=== PATIENT | male | born 1995 | race Caucasian/White ===

== ENCOUNTER 2025-07-27 04:31 | Outpatient (CLI) | payer BC, SELFPAY ==
--- OUTSIDE RECORDS SUMMARY | 2025-05-10 09:45 | XMS_ITS ---
Author Organization [facility] Address [address] [facility] [address] [facility] [address] [place] [id number] Care Team Providers Care Orientation & Mobility Specialist Name Role Phone Ramesh Hernandeza Unavailable [phone] Allergies No Known Allergies REASON FOR VISIT New establishment Encounters Encounter Location Date Provider Diagnosis [facility] [address] [facility] [address] [place] [id number] 05/10/2025 Cassy Hernandez Plan Of Treatment No Information Progress Notes * Singh SWARTZDOB: [birth year] (30 yo M)Acc No.[id number]:05/10/2025 Progress Notes Patient: Singh CROW Provider: JAZMÍN Haider :1995 A ge:30 Y S ex:Male Date:05/10/2025 Address:[facility] [id number] Subjective: * Chief Complaints: * 1 . New establishment. * HPI: H PI: Patient is here today for t o get establish with us. Pt was seen by. * ROS: A LLERGY: Negative for r unny nose, scratchy throat, itchy eyes. D ERMATOLOGY: Negative for r jerrod, hives. G ASTROENTEROLOGY: Negative for n ausea, vomiting, diarrhea. U ROLOGY: Negative for d ifficulty urinating, frequent urination, recurrent UTI. * Medical History: M edical History Verified. 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 * Allergies: N .K.D.A. Objective: * Vitals: Assessment: Plan: * Treatment: * Images: Billing Information: * Visit Code: * Procedure Codes: * Electronic signature of JAZMÍN Damon on 07/27/2025 at 04:37 AM EDT Sign off status: Pending * Provider: JAZMÍN Haider Date: 0 05/10/2025 Generated for Marian jason/Robert/Mica on: 1 04:37 AM EDT History and Physical Notes * HPI (History of Present Illness) Category Sub-Category Detail Notes Category Not es HPI Patient is here today for to get establish with us. Pt was seen by
--- NOTE | 2025-07-27 | XR_ITS ---
PROCEDURE INFORMATION: Exam: XR Left Knee Exam date and time: 07/27/2025 4:32 AM Age: 30 years old Clinical indication: Pain; Knee; Left TECHNIQUE: Imaging protocol: Radiologic exam of the left knee. Views: 3 views. COMPARISON: No relevant prior studies available. FINDINGS: Bones/joints: Normal. Soft tissues: Normal. IMPRESSION: No acute findings.
--- OUTSIDE RECORDS SUMMARY | 2025-07-27 04:37 | XMS_ITS | Encounter Summary ---
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 Role Phone Unavailable Primary Care Provider Unavailabl e Encounter Details Date Type Department Care Team (Late st Contact Info) Description 06/28/2019 Transcribed Document [facility] Family Medicine [address] [place] [address] ProviderHumberto MD [address] [place] [address] Social History Tobacco Use Types Packs/Day Years Used Date Smoking Tobacco: Never Assessed Sex and Gender Information Value Date Recorded Sex Assigned at Male 03/25/2022 8:36 PM CDT Legal Sex Male 8:36 PM CDT Gender Identity Male 03/25/2022 8:36 PM CDT Sexual Orientation Not on file documented as of this encounter Miscellaneous Notes * Cerner Conversion Note - Humberto ProviderMD - 06/28/2019 1:44 AM CDT [facility] [place], [place] [id number] ERIKAJENNA MURILLO Quin :1995 Visit Time:06/27/2019 Your Visit Summary Your Care Team Primary Provider: JOAN KAPADIA Secondary Provider: Your Diagnosis Abdominal pain Diarrhea Viral syndrome Medical Information You may obtain a copy of your Emergency Department visit from Medical Records by calling the hospital phone number listed above and asking to be directed to the Medical Records Department. If you had special tests, such as EKG???s or X-rays, the interpretation of your tests given to you by the Emergency Department Physician is a preliminary report. Some fractures and illnesses fail to show up on preliminary tests. These will be reviewed again and we will call you if there are any new suggestions. If your symptoms continue notify your physician. After you leave, you should follow the instructions provided. What to do next Follow-Up Appointments Follow Up with Return to Emergency Department When Within As needed Follow Up with Follow up with primary care provider When Within 2 to 3 days Follow Up with NO [facility] DR HENDERSON When Within 2 to 3 days Allergies No Known Allergies Immunizations This Visit No Immunizations Found Medications What How Much When Instructions Next Dose New dicyclomine (Bentyl 20 mg oral tablet) 1 Tablet(s) Oral Four Times A Day Duration: 7 Day(s) Printed Prescription New loperamide (Imodium A-D 2 mg oral tablet) 1 Tablet(s) Oral Every 4 Hours as needed for for loose stool Duration: 5 Day(s) Printed Prescription The home medications listed are only as accurate as the information you provided. Please continue taking all of your medications prescribed by your Primary Care Provider unless specifically told to change or discontinue the medication. Please direct any questions regarding your home medications to your Primary Care Provider. Take your medications faithfully. Do NOT skip medication. Do NOT stop taking medications without the direction of a physician. Carry a list of your medications with you at all times, and take this medication list with you to your first follow up visit. Report any side effects. Avoid herbal remedies unless discussed with your physician. As part of your treatment plan, your physician may have prescribed a limited course of a controlled substance. This medication may be given to help people with moderate or severe pain or for other medical conditions, but there are risks involved with treatment. Common side effects may include nausea, constipation, drowsiness, sweating, itching, dry mouth, and rash. More serious side effects may include cognitive and motor impairment, like problems with thinking, concentrating, alertness, and movement (e.g. slowed reflexes), and driving and operating heavy machinery can be dangerous. It is important for you to talk to your physician if you have these side effects or questions. These controlled substances can produce physical dependence and be habit-forming if taken for an extended period of time, which means that the body has gotten used to them and may experience withdrawal symptoms if they are abruptly stopped. Withdrawal symptoms can include runny nose, sweating, goose bumps, diarrhea, abdominal cramping, rapid heartbeat, difficulty sleeping, and nervousness. Please dispose of unused and medications per pharmacy guidance. Test Results Laboratory or Other Results This Visit (last charted value for your 06/27/2019 visit) Hematology 06/27/2019 9:23 PM WBC: 11.0 K/uL -- Normal range between ( 3.6 and 9.5 ) RBC: 5.31 Million/uL -- Normal range between ( 4.20 and 5.70 ) Hct: 48.0 % -- Normal range between ( 40.1 and 51.0 ) Hgb: 17.2 g/dL -- Normal range between ( 13.5 and 17.3 ) Platelet Count: 228 K/uL -- Normal range between ( 163 and 369 ) MCH: 32.4 pg -- Normal range between ( 25.6 and 32.2 ) MCHC: 35.8 Gram/dL -- Normal range between ( 32.2 and 36.5 ) MCV: 90.4 fL -- Normal range between ( 79.0 and 94.8 ) Slide Review: No Eos %: 2.8 % -- Normal range between ( 0.0 and 7.0 ) Cherry #: 1.22 K/uL -- Normal range between ( 0.16 and 1.00 ) Eos #: 0.31 x10(3)/uL -- Normal range between ( 0.00 and 0.80 ) Cherry %: 11.1 % -- Normal range between ( 3.0 and 9.0 ) Baso %: 0.6 % -- Normal range between ( 0.0 and 1.5 ) Baso #: 0.07 x10(3)/uL -- Normal range between ( 0.00 and 0.20 ) RDW: 12.1 % -- Normal range between ( 11.7 and 14.9 ) Neut %: 65.7 % -- Normal range between ( 34.0 and 71.0 ) Neut #: 7.19 K/uL -- Normal range between ( 1.56 and 6.13 ) Lymph %: 19.2 % -- Normal range between ( 19.3 and 53.1 ) Lymph #: 2.11 x10(3)/uL -- Normal range between ( 1.00 and 3.90 ) MPV: 10.2 fL -- Normal range between ( 9.4 and 12.4 ) IG#: 0.07 x10(3)/uL -- Normal range between ( 0.00 and 0.05 ) IG%: 0.60 % -- Normal range between ( 0.00 and 0.60 ) Urinalysis 06/27/2019 4:45 PM Urine Nitrite: Negative Urine Leukocyte Esterase: Negative Urine Appearance: Clear Urine Glucose Dipstick: Negative Urine Blood Dipstick: Negative Urine Type: U CleanCatch Urine Urobilinogen Dipstick: 0.2 EU/dL Urine Protein Dipstick: Negative Urine Color: Yellow Urine Ketones Dipstick: 40 Urine pH Dipstick: 6.0 -- Normal range between ( 6.0 and 8.0 ) Urine Bilirubin Dipstick: Small Urine Specific Lyman: 1.022 -- Normal range between ( 1.005 and 1.030 ) General Chemistry 06/27/2019 9:23 PM Creatinine Level: 1.10 mg/dL -- Normal range between ( 0.70 and 1.30 ) Sodium Level: 137 mmol/L -- Normal range between ( 136 and 146 ) Potassium Level: 3.9 mmol/L -- Normal range between ( 3.5 and 5.1 ) Chloride Level: 103 mmol/L -- Normal range between ( 102 and 112 ) Carbon Dioxide Level: 25 mmol/L -- Normal range between ( 21 and 32 ) Anion Gap: 13 -- Normal range between ( 9 and 20 ) Bilirubin Total: 1.0 mg/dL -- Normal range between ( 0.2 and 1.2 ) A/G Ratio: 0.9 -- Normal range between ( 1.1 and 2.5 ) ALT: 24 Units/Liter -- Normal range between ( 16 and 61 ) AST: 19 Units/Liter -- Normal range between ( 5 and 37 ) Globulin: 3.9 Gram/dL -- Normal range between ( 1.5 and 4.5 ) Alk Phos: 68 Units/Liter -- Normal range between ( 27 and 136 ) Bun/Creatinine: 8.2 -- Normal range between ( 8.0 and 20.0 ) Calcium Level: 8.8 mg/dL -- Normal range between ( 8.4 and 10.1 ) eGFR : >60 mL/min/1.73m2 eGFR NonAfrican: >60 mL/min/1.73m2 Glucose Level: 76 mg/dL -- Normal range between ( 74 and 106 ) Blood Urea Nitrogen: 9 mg/dL -- Normal range between ( 7 and 22 ) Protein Total: 7.4 Gram/dL -- Normal range between ( 6.4 and 8.2 ) Albumin Level: 3.5 Gram/dL -- Normal range between ( 3.4 and 5.0 ) Infectious Disease 06/27/2019 9:23 PM Hep B Core: Non Reactive Hep C AB: Non Reactive Hep B Surf AG: Non Reactive Hep A IgM AB: Non Reactive Computed Tomography 06/27/2019 10:[address] Abdomen Pelvis W: CT Abdomen Pelvis W Education Materials Diarrhea, Adult Diarrhea is frequent loose and watery bowel movements. Diarrhea can make you feel weak and cause you to become dehydrated. Dehydration can make you tired and thirsty, cause you to have a dry mouth, and decrease how often you urinate. Diarrhea typically lasts 2???3 days. However, it can last longer if it is a sign of something more serious. It is important to treat your diarrhea as told by your health care provider. Follow these instructions at home: Eating and drinking Follow these recommendations as told by your health care provider: ??? Take an oral rehydration solution (ORS). This is a drink that is sold at pharmacies and retail stores. ??? Drink clear fluids, such as water, ice chips, diluted fruit juice, and low-calorie sports drinks. ??? Eat bland, lqgw-ak-zxxeta foods in small amounts as you are able. These foods include bananas, applesauce, rice, lean meats, toast, and crackers. ??? Avoid drinking fluids that contain a lot of sugar or caffeine, such as energy drinks, sports drinks, and soda. ??? Avoid alcohol. ??? Avoid spicy or fatty foods. General instructions ??? Drink enough fluid to keep your urine clear or pale yellow. ??? Wash your hands often. If soap and water are not available, use hand market development manager. ??? Make sure that all people in your household wash their hands well and often. ??? Take dwox-wwz-ymuzmyp and prescription medicines only as told by your health care provider. ??? Rest at home while you recover. ??? Watch your condition for any changes. ??? Take a warm bath to relieve any burning or pain from frequent diarrhea episodes. ??? Keep all follow-up visits as told by your health care provider. This is important. Contact a health care provider if: ??? You have a fever. ??? Your diarrhea gets worse. ??? You have new symptoms. ??? You cannot keep fluids down. ??? You feel light-headed or dizzy. ??? You have a headache ??? You have muscle cramps. Get help right away if: ??? You have chest pain. ??? You feel extremely weak or you faint. ??? You have bloody or black stools or stools that look like tar. ??? You have severe pain, cramping, or bloating in your abdomen. ??? You have trouble breathing or you are breathing very quickly. ??? Your heart is beating very quickly. ??? Your skin feels cold and clammy. ??? You feel confused. ??? You have signs of dehydration, such as: ? Dark urine, very little urine, or no urine. ? Cracked lips. ? Dry mouth. ? Sunken eyes. ? Sleepiness. ? Weakness. This information is not intended to replace advice given to you by your health care provider. Make sure you discuss any questions you have with your health care provider. Document Released: 09/04/2003 Document Revised: 04/28/2018 Document Reviewed: 05/20/2016 [employer] Patient Education ?? 2019 [employer] Emergency Awareness and Preventative Care STROKE is an EMERGENCY Every Minute Counts Act FAST and Check for these signs: FACE Does the face look uneven? ARM Does one arm drift down? SPEECH Does their speech sound strange? TIME Call at any sign of stroke Stroke Risk Factors Atrial Fibrillation (irregular heartbeat) Diabetes Family history of stroke Heart Disease Heavy alcohol use High Blood Pressure High Cholesterol Physical inactivity and obesity Smoking Cigarette Smoking The facts are clear, cigarette smoking will shorten your life. Smoking can cause many illnesses along the way. As a healthcare provider, we recommend that you stop smoking. Assistance with quitting is available by contacting 8-684-WPVQ-NOW. This is a free resource providing counseling, support, and referral. Or you may contact your personal physician. National Suicide Prevention Lifeline: The National Suicide Prevention Lifeline is a national network of local crisis centers that provides free and confidential emotional support to people in suicidal crisis or emotional distress 24 hours a day, 7 days a week. Don't Wait! Stop a Heart Attack Before it Starts What is a heart attack? A heart attack is damage or to a part of the heart from severely decreased or lack of blood flow to the heart. Over time, arteries can become narrow from the buildup of fat and cholesterol, which is called plaque. The plaque can rupture causing a blood clot to form. When the blood clot forms, the artery can become severely narrowed or completely blocked, causing a heart attack. Heart attack is the leading cause of in the [place]. 85% of muscle damage occurs within the first 2 hours. Delay in the recognition of heart attack symptoms increases the chances of . Know the early symptoms of a heart attack: Nausea Feeling of fullness in chest Jaw Pain Pain that travels down one or both arms Fatigue/being tired Anxiety Back Pain Chest pressure, squeezing, or discomfort Shortness of breath Sweating, or a cold sweat Feeling of impending doom There are unusual signs of a heart attack, too! Women, the elderly, and diabetics may present with atypical symptoms: Fainting/dizziness Weakness Confusion Risk Factors for a Heart Attack Some heart disease risk factors, such as age and family history, cannot be changed. Others, like smoking and lack of exercise, can be changed. Smoking High Cholesterol High Blood Pressure Family History Obesity Age Gender (Males are at higher risk) Lack of Exercise Diabetes Diet Stress Excessive Alcohol Intake If you or someone you know is experiencing the signs and symptoms of a heart attack, DON???T DELAY. Call immediately and seek help. If someone collapses, perform CPR! Do not attempt to drive if you are having symptoms of heart attack. Hands-Only CPR Why Hands-Only CPR? Hands-Only CPR has been shown to be as effective as conventional CPR for cardiac arrests that occur outside of a hospital. Survival depends on immediately receiving CPR from someone nearby. How do you perform Hands-Only CPR? There are two easy steps: Call if you see a teen or adult collapse Push hard and fast in the center of the chest at a beat of 100 beats per minute. Save a life! 4 WAYS TO GET AHEAD OF SEPSIS SEPSIS is a MEDICAL EMERGENCY. Time matters! Infections put you and your family at risk for a life-threatening condition called sepsis. Sepsis is the body's extreme response to an infection. It is life-threatening, and without timely treatment, sepsis can rapidly lead to tissue damage, organ failure, and . Sepsis happens when an infection you already have-in your skin, lungs, urinary tract or somewhere else-triggers a chain reaction throughout your body. 1 PREVENT INFECTIONS Take good care of chronic conditions. Talk to your doctor about getting the recommended vaccines. 2 PRACTICE GOOD HYGIENE Wash your hands frequently. Keep cuts or open sores clean and covered until they are healed. 3 KNOW THE SYMPTOMS Confusion or disorientation Shortness of breath High heart rate Fever, shivering, or feeling very cold Extreme pain or discomfort Clammy or sweaty skin 4 ACT FAST Get medical care IMMEDIATELY if you suspect sepsis or if you have an infection that is not getting better or is getting worse. To learn more about sepsis and how to prevent infections, visit www.cdc.gov/sepsis. The examination and treatment you have received in the Emergency Department has been done to provide an appropriate evaluation and stabilizing treatment on an emergency basis only. Given the limited resources, it is not meant to be a substitute for complete medical care. The follow-up doctor you named will receive a copy of your records and all test reports. IT IS IMPORTANT THAT YOU SCHEDULE A FOLLOW-UP APPOINTMENT AND ARE RE-EVALUATED. You should report any new complaints, symptoms, or remaining problems at that time. IT IS IMPOSSIBLE FOR THE EMERGENCY DEPARTMENT TO RECOGNIZE AND TREAT ALL ELEMENTS OF INJURY OR ILLNESS IN A SINGLE VISIT. If you have been referred to a specialist physician, it means that we believe you may have a condition that requires the expertise of a specialist. These physicians work in partnership with the hospital and have agreed to see referred patients in their office for further evaluation. KEEP IN MIND THAT THE SPECIALIST HAS HIS/HER OWN OFFICE POLICIES WHICH MAY REQUIRE PROPER INSURANCE OR PAYMENT UP FRONT BEFORE THE SPECIALIST WILL SEE YOU. It is your responsibility to call the specialist physician to make an appointment. We do not have the ability to refer patients to specialists/physicians that work with specific insurance companies. Please be advised that all financial charges or billing practices are determined by that practice, not the hospital. If your insurance company requires that you see a specialist from their approved list, it is your responsibility to contact your insurance company to make those arrangements. It is also your responsibility to follow any other requirements of your insurance company necessary to obtain coverage for claims submitted. We will bill your insurance; however, you are responsible today for any co-pay amounts. You will receive a separate bill for any services you may have received including: emergency, radiology, or pathology physicians. Patient Name:JENNA SWARTZ I have received this information and was given the opportunity to ask questions. Patient/Special Machine Stitcher Name: Patient/Special Machine Stitcher Signature: Relationship to Patient: Clinician/Hospital Special Machine Stitcher Signature: Please Provide a Telephone Number Where You Can Be Reached: Is it Permissible To Leave a Message? Date: documented in this encounter Plan of Treatment Not on file documented as of this encounter Visit Diagnoses Not on filedocumented in this encounter
--- OUTSIDE RECORDS SUMMARY | 2025-07-27 04:37 | XMS_ITS | Clinical Summary ---
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 06/19/2020 Active prazosin (MINIPRESS) 1 MG capsule TAKE 1 2 CAPSULES BY MOUTH AT BEDTIME 05/23/2020 Active Active Problems No known active problems Social History Tobacco Use Types Packs/Day Years Used Date Smoking Tobacco: Light Smoker E-Cigarettes Smokeless Tobacco: Never Intimate Partner Violence Answer Date R ecorded Insults You Not on file 01/11/2021 Threatens You Not on file 01/11/2021 Screams at You Not on file 01/11/2021 Physically Hurt Not on file 01/11/2021 Intimate Partner Violence Score Not on file 01/11/2021 Stress Answer Date Recorded Stress in your Life Not on file 08/03/2024 Dealing with Stress 3 08/03/2024 Sex and Gender Information Value Date Recorded Sex Assigned at Male 01/24/2025 6:09 PM CDT Legal Sex Male 9:33 AM CDT Gender Identity Male 01/24/2025 6:09 PM CDT Sexual Orientation Not on file Last Filed Vital Signs Vital Sign Reading Time Taken Comments Blood Pressure 138/82 06/23/2019 9:19 AM EDT Pulse 72 10/08/2020 10:28 PM EST Temperature 37 C (98.6 F) 10/08/2020 10:28 PM EST Respiratory Rate - - Oxygen Saturation 97% 10/08/2020 10:28 PM EST Inhaled Oxygen Concentration - - Weight 129 kg (284 lb) 06/23/2019 9:19 AM EDT Height 185.4 cm (6' 1 ) 06/23/2019 9:19 AM EDT Body Mass Index 37.47 06/23/2019 9:19 AM EDT Plan of Treatment Health Maintenance Due Date Last Done Comments Dental Cleaning/Exam 1995 HIV Screening 1995 Hepatitis C Screening 1995 HPV Immunization (1 - Male 3-dose series) 01/17/2012 Hep B Infection Screening - Triple Screen 2015 Pneumococcal Immunization (1 of 2 - PCV) 01/17/2016 Tetanus Diphtheria and Pertussis Immunization (7 - Td or Tdap) 03/16/2018 03/16/2008, 05/02/2001, 08/09/1998, Additional history exists Annual Preventive Exam 06/23/2020 06/23/2019 Covid-19 Immunization ( - season) 2025 Influenza Immunization (#1) 2025 Hepatitis B Immunization Completed 997, 1995, 1995 HIB Immunization Completed 08/09/1998, , 1997, Additional history exists Polio Immunization Completed 12/31/2000, 1 1995, 1995, Additional history exists Meningococcal Immunization Discontinued 05/15/2015, Hepatitis A Immunization Aged Out No longer eligible based on patient's age to complete this topic Varicella Immunization Aged Out No lo nger eligible based on patient's age to complete this topic Insurance OPT OUT NO COPAY NB
--- OUTSIDE RECORDS SUMMARY | 2025-07-27 04:37 | XMS_ITS | Clinical Summary ---
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
--- OUTSIDE RECORDS SUMMARY | 2025-07-27 04:37 | XMS_ITS | Encounter Summary ---
Author Organization [employer] ([place], [place], [place], [place]) Address [address] [place] [address] Care Team Providers Care Interior Horticulturist Name Role Phone Unavailable Primary Care Provider Unavailabl e Encounter Details Date Type Department Care Team (Late st Contact Info) Description 06/27/2019 Transcribed Document [facility] [place] [facility] [address] [place] [address] ProviderHumberto MD [address] [place] [address] Social History Tobacco Use Types Packs/Day Years Used Date Smoking Tobacco: Never Assessed Sex and Gender Information Value Date Recorded Sex Assigned at Male 03/25/2022 8:36 PM CDT Legal Sex Male 8:36 PM CDT Gender Identity Male 03/25/2022 8:36 PM CDT Sexual Orientation Not on file documented as of this encounter Miscellaneous Notes * Cerner Conversion Note - Historical ProviderMD - 06/27/2019 8:28 PM CDT Patient: JENNA SWARTZ Age: 24 years Sex: Male : 1995 Associated Diagnoses: Diarrhea; Viral syndrome Author: JOAN KAPADIA, ROSAS Basic Information Time seen: Date & time 06/27/2019 19:47:00. History source: Patient. Arrival mode: Private vehicle. History limitation: None. Additional information: Chief Complaint from Nursing Triage Note : Chief Complaint 06/27/2019 15:15 EDT Chief Complaint pt c/o abd pain with blood stool, . History of Present Illness Patient reports that he has been having abdominal pain with cramping and severe diarrhea since last Thursday. He states that he was seen by his primary care and told that he probably had a stomach virus. He states that he is having 20-30 loose stools per day. Patient states there has been occasional blood in the stool. There is been no recent travels. There is been no recent consumption of uncooked food. Patient denies any fever or chills. Patient states that he has not been able to really eat or drink anything and as soon as he eats or drinks he immediately starts having diarrhea. Patient states that he has been able to drink some Pedialyte every day. Review of Systems Constitutional symptoms: No fever, no chills. Skin symptoms: No jaundice, Respiratory symptoms: Negative except as documented in HPI. Cardiovascular symptoms: Negative except as documented in HPI. Gastrointestinal symptoms: Abdominal pain, moderate, diffuse, cramping, nausea, diarrhea, No vomiting, Genitourinary symptoms: Negative except as documented in HPI. Musculoskeletal symptoms: Negative except as documented in HPI. Neurologic symptoms: Negative except as documented in HPI. Psychiatric symptoms: Negative except as documented in HPI. Endocrine symptoms: Negative except as documented in HPI. Hematologic/Lymphatic symptoms: Negative except as documented in HPI. Allergy/immunologic symptoms: Negative except as documented in HPI. Health Status Allergies: Allergic Reactions (Selected) No Known Allergies. Medications: (Selected) Inpatient Medications Ordered Normal Saline 1,000 mL: 999 mL/Hr, IntraVENous, Stop: 06/27/19 21:06:00 EDT Normal Saline Flush: 10 mL, IV Push, 1-Time. Past Medical/ Family/ Social History Surgical history: No active procedure history items have been selected or recorded., Reviewed as documented in chart. Family history: No family history items have been selected or recorded., Reviewed as documented in chart. Social history: Social & Psychosocial Habits No Data Available , Reviewed as documented in chart. Problem list: No qualifying data available , per nurse's notes. Physical Examination Vital Signs Vital Signs/Vital Measures 06/27/2019 15:15 EDT Systolic Blood Pressure 150 mmHg HI Diastolic Blood Pressure 91 mmHg HI Temperature Source Oral Temperature Mode Fahrenheit Temperature, Fahrenheit 99.0 Deg F Clinical Temperature, C 37.2 Deg C Peripheral Pulse Rate 91 bpm Respiratory Rate 18 Breaths/Min Oxygen Saturation 100 % Oxygen Therapy Mode Room air . Measurements 06/27/2019 15:15 EDT Height Source Stated Height Entry Format [place] Height/Length, WALLISIAN (ft) 6 ft Height/Length WALLIS[place] 2 Inch CLINICALHEIGHT 187.96 cm [place] Body Weight 81 kg Weight Source Standing scale Weight Entry Format [place] Weight Nigerian lb 280 lb CLINICALWEIGHT 127.27 kg Body Surface Area (BSA) 2.51 m2 Body Mass Index 36 kg/m2 HI . Oxygen Saturation 06/27/2019 15:15 EDT Oxygen Saturation 100 % . General: Alert, no acute distress. Skin: Warm, pink, intact. Cardiovascular: Regular rate and rhythm. Respiratory: Lungs are clear to auscultation, respirations are non-labored, breath sounds are equal, Symmetrical chest wall expansion. Gastrointestinal: Soft, Non distended, Tenderness: Moderate, generalized. Musculoskeletal: Normal ROM. Neurological: Alert and oriented to person, place, time, and situation. Psychiatric: Cooperative. Medical Decision Making Differential Diagnosis: Abdominal pain, cholecystitis, hepatitis, pancreatitis, irritable bowel syndrome, gastroenteritis, diverticulitis, diarrhea, viral syndrome, gastritis, colitis. Orders Include Previous Orders (Selected) Inpatient Orders Ordered Normal Saline 1,000 mL: 999 mL/Hr, IntraVENous Saline Lock Insert: Ordered (Collected) Clostridium (Clostridioides) difficile Antigen/Toxin: Stool Culture: Ordered (In-Lab) Culture Stool: Ova and Parasites: Completed .Automated Differential: Bentyl: 20 mg, Oral, 1-Time CBC w/ Auto Diff: CMP Comprehensive Metabolic Panel: CT Abdomen Pelvis W: ED Clinical Reconciliation: ED Lisa Wilkinson Assessment: ED PEDS Triage: ED hot wound spring production supervisor: Hepatitis Panel Acute: Normal Saline 1,000 mL: 999 mL/Hr, IntraVENous, Stop: 06/27/19 21:06:00 EDT Normal Saline Flush: 10 mL, IV Push, 1-Time Urinalysis w Microscopic if Indicated: iopamidol: 75 mL, IV Push, ADHOC. Results review: All Results 06/27/2019 22:[address] Abdomen Pelvis W REPORT 06/27/2019 20:28 EDT ED Physician Notes Abdominal pain (In Progress) 06/27/2019 19:52 EDT ED Nursing Record 06/27/2019 23:32 EDT Hand off Report Received From Belinda Mitchell Rn 06/27/2019 23:31 EDT dicyclomine 20 mg mg Sodium Chloride 0.9% Begin Bag 1,000 mL mL 06/27/2019 22:25 EDT iopamidol 75 mL mL 06/27/2019 21:53 EDT Estimated Creatinine Clearance 122.47 mL/Min 06/27/2019 21:33 EDT Nurse Collect Order Detail 3.00 06/27/2019 21:33 EDT Nurse Collect Order Detail 3.00 06/27/2019 21:23 EDT Sodium Level 137 mmol/L Potassium Level 3.9 mmol/L Chloride Level 103 mmol/L Carbon Dioxide Level 25 mmol/L Anion Gap 13 Glucose Level 76 mg/dL Blood Urea Nitrogen 9 mg/dL Creatinine Level 1.10 mg/dL eGFR >60 mL/min/1.73m2 eGFR NonAfrican >60 mL/min/1.73m2 Bun/Creatinine 8.2 Calcium Level 8.8 mg/dL Protein Total 7.4 Gram/dL Albumin Level 3.5 Gram/dL Globulin 3.9 Gram/dL A/G Ratio 0.9 LOW Bilirubin Total 1.0 mg/dL Alk Phos 68 Units/Liter AST 19 Units/Liter ALT 24 Units/Liter WBC 11.0 K/uL HI RBC 5.31 Million/uL Hgb 17.2 g/dL Hct 48.0 % MCV 90.4 fL MCH 32.4 pg HI MCHC 35.8 Gram/dL Platelet Count 228 K/uL MPV 10.2 fL RDW 12.1 % Neut % 65.7 % Neut # 7.19 K/uL HI Lymph % 19.2 % LOW Lymph # 2.11 x10(3)/uL Curry % 11.1 % HI Curry # 1.22 K/uL HI Eos % 2.8 % Eos # 0.31 x10(3)/uL Baso % 0.6 % Baso # 0.07 x10(3)/uL Slide Review No IG# 0.07 x10(3)/uL HI IG% 0.60 % Hep A IgM AB Non Reactive Hep B Surf AG Non Reactive Hep B Core Non Reactive Hep C AB Non Reactive 06/27/2019 20:07 EDT Nurse Collect Order Detail 3.00 06/27/2019 20:07 EDT Nurse Collect Order Detail 3.00 06/27/2019 20:07 EDT sodium chloride Not Done: Completed and previously documented (Not Done) 06/27/2019 20:01 EDT Nurse Collect Order Detail 3.00 06/27/2019 20:01 EDT Nurse Collect Order Detail 3.00 06/27/2019 19:56 EDT [place] Fall Interventions Not Done: Not Appropriate at this Time (Not Done) HDFS Age Not Done: Not Appropriate at this Time (Not Done) HDFS Gender Not Done: Not Appropriate at this Time (Not Done) HDFS Diagnosis Not Done: Not Appropriate at this Time (Not Done) HDFS Cognitive Impairments Not Done: Not Appropriate at this Time (Not Done) HDFS Environmental Factors Not Done: Not Appropriate at this Time (Not Done) HDFS Surgery/Sed/Anesth Response Not Done: Not Appropriate at this Time (Not Done) HDFS Medication Usage Not Done: Not Appropriate at this Time (Not Done) HDFS Fall Risk Score Not Done: Not Appropriate at this Time (Not Done) HDFS Fall Risk Level Not Done: Not Appropriate at this Time (Not Done) 06/27/2019 19:52 EDT Pain Assessment Initial assessment Pain Scale Used 0-10 Scale Pain Intensity 8 Pain Location Abdomen, left lower, Abdomen, right lower Pain Quality Other: ripping Pain Onset Acute Pain Radiation Yes Pain Radiation Location Back EENT Assessment WDL WDL Neurologic Assessment WDL WDL Level of Consciousness Alert, Awake Orientation Oriented x 4 Affect/Behavior Appropriate, Calm, Cooperative Cardiovascular Assessment WDL WDL Respiratory Assessment WDL WDL Breath Sounds Auscultated Anterior, Laterally All Lobes Breath Sounds Clear Gastrointestinal Assessment WDL WDL with exceptions Genitourinary Assessment WDL WDL Musculoskeletal Assessment WDL WDL Integumentary Assessment WDL WDL Skin Description Normal for ethnicity Skin Temperature Warm Communication Barrier None Primary Language Nigerian Information Obtained From Patient Smoking Status Never (less than 100 in lifetime; none in last 30 days) Smokeless Tobacco Status Never Any Spiritual/Cultural Needs or Requests No Currently in Unsafe Situation No 06/27/2019 15:15 EDT ED Nursing Record 06/27/2019 19:00 EDT ABCs Fall Injury Risk Identification None Injury Moderate High Risk Intervention Patient room close to nurses station, Supervise toileting as indicated, Transport methods appropriate to patient, Visual cues in place DOTSON Hx Falls Immediate/Within 3 Months No [place] Secondary Diagnosis No DOTSON Ambulatory Aid None [place] IV Therapy or IV Access No [place] Gait/Transferring Normal, bedrest, immobile DOTSON Mental Status Oriented to own ability [place] Fall Risk Score 0 [place] Fall Scale Risk Level 0-24 Low Risk Fall Moderate to High Risk Interventions Patient room close to nurses station, Supervise toileting as indicated, Transport methods appropriate to patient, Visual cues in place 06/27/2019 15:00 EDT Consent Forms Consent Forms Preferred Language Form Preferred Language Form 06/27/2019 16:45 EDT Urine Type U CleanCatch Urine Color Yellow Urine Appearance Clear Urine Specific [place] 1.022 Urine pH Dipstick 6.0 Urine Leukocyte Esterase Negative Urine Nitrite Negative Urine Protein Dipstick Negative Urine Glucose Dipstick Negative Urine Ketones Dipstick 40 Urine Urobilinogen Dipstick 0.2 EU/dL Urine Bilirubin Dipstick Small Urine Blood Dipstick Negative 06/27/2019 15:35 EDT Nurse Collect Order Detail 3.00 06/27/2019 15:15 EDT Systolic Blood Pressure 150 mmHg HI Diastolic Blood Pressure 91 mmHg HI Temperature Source Oral Temperature Mode Fahrenheit Temperature, Fahrenheit 99.0 Deg F Clinical Temperature, C 37.2 Deg C Peripheral Pulse Rate 91 bpm Respiratory Rate 18 Breaths/Min Oxygen Saturation 100 % Oxygen Therapy Mode Room air Height Source Stated Height Entry Format [place] Height/Length, [place] (ft) 6 ft Height/Length [place] 2 Inch CLINICALHEIGHT 187.96 cm [place] Body Weight 81 kg Weight Source Standing scale Weight Entry Format [place] Weight Nigerian lb 280 lb CLINICALWEIGHT 127.27 kg Body Surface Area (BSA) 2.51 m2 Body Mass Index 36 kg/m2 HI Pain Assessment Initial assessment Pain Scale Used 0-10 Scale Pain Intensity 9 Pain Location Abdominal Thoughts of Harming/Killing Yourself No Tuberculosis Symptoms None Infectious Disease History None Fever/Chills Last 48 Hours No Travel To [place] with Travel Advisories No Travel Outside [place] Within Last 30 Days No Contact With Traveler to Advisory Region No Chief Complaint pt c/o abd pain with blood stool, Transported to ED by Private vehicle To Room Via Wheelchair Tracking Acuity 3 - Urgent Accompanied by Spouse Mode of Arrival Ambulatory Immunizations Reviewed Up to date 06/27/2019 15:01 EDT Nurse Collect Order Detail 3.00 06/27/2019 14:58 EDT Nurse Collect Order Detail 3.00 06/27/2019 14:56 EDT Nurse Collect Order Detail 3.00 Nurse Collect Order Detail 3.00 . Radiology results: Radiology Results (Last 48 hours) [id number] -- 06/27/2019 14:56 CT Abdomen Pelvis W (06/27/2019 22:30) Result: CT OF THE ABDOMEN AND PELVIS HISTORY: Generalized abdominal pain. Blood in stool. Diarrhea.PROCEDURE: Routine axial images were obtained from the lung bases tothe pubic symphysis following IV contrast administration. This study wasperformed with techniques to keep radiation doses as low as reasonablyachievable, (ALARA). Individualized dose reduction techniques usingautomated exposure control or adjustment of mA and/or kV according tothe patient size were employed.COMPARISON: None.FINDINGS: Abdomen: The gallbladder, solid abdominal organs and ureters are withinnormal limits. There is mild increased fluid within the colon consistentwith the history of diarrhea, but there is no convincing evidence forcolitis. The GI tract is otherwise unremarkable, with no sign ofappendicitis.Pelvis: The urinary bladder is normal. There is no pelvic or abdominalascites, adenopathy, or acute osseous abnormality.IMPRESSION: No significant abnormality. . Reexamination/ Reevaluation Time: 06/28/2019 00:10:00 . Vital signs per nurse's notes Course: improving. Pain status: decreased. Assessment: exam improved. Impression and Plan Diagnosis Diarrhea - Discharge, Emergency medicine, Medical Viral syndrome - Discharge, Emergency medicine, Medical Plan Condition: Stable. Disposition: Discharged Admit/Transfer/Discharge: Discharge (Order): Start: 06/28/2019 0:10 EDT, Discharge to: Home. Prescriptions: Prescription [facility]: Imodium A-D 2 mg oral tablet (Prescribe): 1 Tab, Oral, Q4H, for 5 Day(s), PRN: for loose stool, 20 Tab, 0 Refill(s) Bentyl 20 mg oral tablet (Prescribe): 1 Tab, Oral, QID, for 7 Day(s), 28 Tab, 0 Refill(s). Patient was given the following educational materials: Diarrhea, Adult. Follow up with: YENY HENDERSON Within 2 to 3 days; Follow up with primary care provider Within 2 to 3 days; Return to Emergency Department Within As needed. Counseled: Patient, Regarding diagnosis, Regarding diagnostic results, Regarding treatment plan, Regarding prescription, Patient indicated understanding of instructions. documented in this encounter Plan of Treatment Not on file documented as of this encounter Visit Diagnoses Not on filedocumented in this encounter
--- OUTSIDE RECORDS SUMMARY | 2025-07-27 04:37 | XMS_ITS | Patient Health Record ---
[facility] Address [address] [id number] Care Team Providers Care Beauty Advisor Name Role Phone AlenCassy mix Unavailable [phone] Allergies No Known Allergies Reason For Referral No Information Plan Of Treatment No Information
--- OUTSIDE RECORDS SUMMARY | 2025-07-27 04:37 | XMS_ITS | Encounter Summary ---
Author Organization [employer] ([place], [place], [place], [place]) Address [address] [place] [address] Care Team Providers Care Health Insurance Specialist Name Role Phone Unavailable Primary Care Provider Unavailabl e Encounter Details Date Type Department Care Team (Late st Contact Info) Description 06/27/2019 Transcribed Document [facility] [place] [address] ProviderHumberto MD [address] [place] [address] Social History Tobacco Use Types [...] Conversion Note - Historical ProviderMD - 06/27/2019 2:56 PM CDT PED ED Triage Entered On: 06/27/2019 16:03 EDT Performed On: 06/27/2019 15:15 EDT by MANOJ VALDEZ RN PED ED Triage Triage Date/Time : 06/27/2019 15:15 EDT Chief Complaint : pt c/o abd pain with blood stool, MANOJ VALDEZ RN - 06/27/2019 16:02 EDT DCP GENERIC CODE Tracking Acuity : 3 - Urgent Tracking Group : [facility] ED MANOJ VALDEZ RN - 06/27/2019 16:02 EDT Mode of Arrival : Ambulatory Transported to ED by : Private vehicle To Room Via : Wheelchair Accompanied By : Spouse ED Vital Signs : Document Height & Weight : Document ED Allergies : Document ED Reason for Visit : Document Immunizations Reviewed : Up to date Attempts at Self Harm in the Past : No Thoughts of Harming/Killing Yourself : No MANOJ VALDEZ RN - 06/27/2019 16:02 EDT Infectious Disease History Infectious Disease History : None Fever/Chills Last 48 Hours : No Travel To [place] with Travel Advisories : No Travel Outside [place] Within Last 30 Days : No Contact With Traveler to Advisory Region : No Tuberculosis Symptoms : None MANOJ VALDEZ RN - 06/27/2019 16:02 EDT Vital Signs ED Temperature Source : Oral Temperature Mode : Fahrenheit Temperature, Fahrenheit : 99.0 Deg F ED Pain : Yes Clinical Temperature, C : 37.2 Deg C Oxygen Therapy Mode : Room air Peripheral Pulse Rate : 91 bpm Respiratory Rate : 18 Breaths/Min Systolic Blood Pressure : 150 mmHg (HI) Diastolic Blood Pressure : 91 mmHg (HI) Oxygen Saturation : 100 % MANOJ VALDEZ RN - 06/27/2019 16:02 EDT Height and Weight, Clinical Dosing Height Source : Stated Height Entry Format : [place] Height, Feet : 6 ft(Converted to: 183 cm, 72 Inch) Height, Inches : 2 Inch(Converted to: 0 ft 2 Inch, 5.08 cm) Clinical Height : 187.96 cm Weight Source : Standing scale Weight Entry Format : [place] Clinical Dosing Weight : 127.27 kg Weight, Pounds : 280 lb Body Surface Area (BSA) : 2.51 m2 Body Mass Index : 36 kg/m2 (HI) [place] Body Weight : 81 kg MANOJ VALDEZ RN - 06/27/2019 16:02 EDT Diagnosis Control ED (As Of: 06/27/2019 16:03:44 EDT) Diagnoses(Active) Abdominal pain Date: 06/27/2019 ; Diagnosis Type: Reason For Visit ; Confirmation: Complaint of ; Clinical Dx: Abdominal pain ; Classification: Medical ; Clinical Service: Emergency medicine ; Code: PNED ; Probability: 0 ; Diagnosis Code: [id number] Allergy (As Of: 06/27/2019 16:03:44 EDT) Allergies (Active) No Known Allergies Estimated Onset Date: Unspecified ; Created By: MANOJ VALDEZ RN; Reaction Status: Active ; Category: Drug ; Substance: No Known Allergies ; Type: Allergy ; Updated By: MANOJ VALDEZ RN; Reviewed Date: 06/27/2019 16:03 EDT Pain Assessment Pain Assessment : Initial assessment Pain Scale Used : 0-10 Scale Location : Abdominal MANOJ VALDEZ RN - 06/27/2019 16:02 EDT Pain Scale Intensity : 9 MANOJ VALDEZ RN - 06/27/2019 16:02 EDT Image 4 - Images currently included in the form version of this document have not been included in the text rendition version of the form. documented in this encounter Plan of Treatment Not on file documented as of this encounter Visit Diagnoses Not on filedocumented in this encounter
--- OUTSIDE RECORDS SUMMARY | 2025-07-27 04:37 | XMS_ITS | Clinical Summary ---
Author Organization [facility] Address [address] [place] [address] Care Team Providers Care Housing Project Manager Name Role Phone Provider, No Known Primary Care Provider Unavail able Allergies No known active allergies Medications buPROPion XL (WELLBUTRIN XL) 300 MG 24 hr tablet Take 300 mg by mouth Daily. 1 Active FLUoxetine (PROzac) 20 MG capsule Take 20 mg by mouth Daily. 1 Active methylPREDNISolon e (MEDROL) 4 MG dose packIndications:A cute non-recurrent pansinusitis Take as directed on package instructions. 21 tablet 1 Active fluticasone (FLONASE) 50 MCG/ACT nasal sprayIndications: Pharyngitis, unspecified etiology,Acute non-recurrent pansinusitis 2 sprays into the nostril(s) as directed by provider Every Night for 30 days. Administer 2 sprays in each nostril for each dose. 18.2 mL 1 Active Social History Tobacco Use Types Packs/Day Years Used Date Smoking Tobacco: Some Days Smokeless Tobacco: Never Alcohol Use Standard Drinks/Week Comments Yes 0 (1 standard drink = 0.6 oz pur e alcohol) Abuse Screen Answer Date Recorded Unsafe at Home or Work/School Not on file Feels Threatened by Someone? Not on file Does Anyone Keep You from Co ntacting Others or Doint Things Outside the Home? Not on file 07/10/2023 Physical Sign of Abuse Present Not on file 1 Housing Stability Answer Date Recorded Current Living Arrangements Not on file 06/28 Potentially Unsafe Housing Conditions Not on jamal e 07/10/2023 Family and Community Support Answer Denys e Recorded Help with Day-to-Day Activities Not on file 07/10/2023 Lonely or Isolated Not on file 07/10/2023 Employment Answer Date Recorded Do you want help finding or keeping work or a wood b? Not on file 07/10/2023 Disabilities Answer Date Recorded Concentrating, Remembering, or Making Decisions Difficulty Not on file 07/10/2023 Doing Errands Independently Difficulty Not on fi le 07/10/2023 Education Answer Date Recorded Help with school or training? Not on file Preferred Language Not on file 07/10/2023 Sex and Gender Information Value Date Recorded Sex Assigned at Not on file Legal Sex Male 7:52 AM EDT Gender Identity Not on file Sexual Orientation Not on file Last Filed Vital Signs Vital Sign Reading Time Taken Comments Blood Pressure 150/98 07/01/2021 8:19 AM EDT Pulse 90 07/01/2021 8:16 AM EDT Temperature 37.4 C (99.4 F) 07/01/2021 8:16 AM EDT Respiratory Rate 14 07/01/2021 8:16 AM EDT Oxygen Saturation 96% 07/01/2021 8:16 AM EDT Inhaled Oxygen Concentration - - Weight 127 kg (280 lb) 07/01/2021 8:16 AM EDT Height 188 cm (6' 2 ) 07/01/2021 8:16 AM EDT Body Mass Index 35.95 07/01/2021 8:16 AM EDT Plan of Treatment Health Maintenance Due Date Last Done Comments ANNUAL PHYSICAL 1995 HEPATITIS C SCREENING 1995 TDAP/TD VACCINES (2 - Td or Tdap) 03/16/2018 008 INFLUENZA VACCINE 04/28/2025 Pneumococcal Vaccine 0-49 Aged Out No longer eligible based on patient's age to complete this topic Insurance Care Teams Housing Project Manager Relationship Specialty Start Date End Date Provider, [place] [address] PCP - General 07/01/21
--- OUTSIDE RECORDS SUMMARY | 2025-07-27 04:37 | XMS_ITS | Encounter Summary ---
Author Organization [employer] ([place], [place], [place], [place]) Address [address] [place] [address] Care Team Providers Care College Athlete Name Role Phone Unavailable Primary Care Provider Unavailabl e Encounter Details Date Type Department Care Team (Late st Contact Info) Description 06/28/2019 Transcribed Document [facility] [place] [address] [place] [address] ProviderHumberto MD [address] [place] [address] Social History Tobacco Use Types Packs/Day Years Used Date Smoking Tobacco: Never Assessed Sex and Gender Information Value Date Recorded Sex Assigned at Male 03/25/2022 8:36 PM CDT Legal Sex Male 8:36 PM CDT Gender Identity Male 03/25/2022 8:36 PM CDT Sexual Orientation Not on file documented as of this encounter Miscellaneous Notes * Cerner Conversion Note - Historical ProviderMD - 06/28/2019 1:52 AM CDT ED Discharge Entered On: 06/28/2019 1:52 EDT Performed On: 06/28/2019 1:52 EDT by Leisa Zheng, hospitality housekeeper Process Patient Disposition : Discharge Personal Belongings With Patient : Yes Patient Education Completed : Yes Teaching Evaluation : Verbalizes understanding IV Discontinued : Yes Nursing Documentation Completed : Yes Leisa Zheng, RN - 06/28/2019 1:52 EDT ED Discharge Discharge To : Home without planned follow-up Mode Of Departure : Ambulatory Accompanied By : Unaccompanied Discharge Instructions Reviewed With, Opportunity For Questions Given : Patient Prescriptions Given to Patient : Yes Number of Prescriptions Given : 2 Work/school Release Given : Yes Leisa Zheng, RN - 06/28/2019 1:52 EDT documented in this encounter Plan of Treatment Not on file documented as of this encounter Visit Diagnoses Not on filedocumented in this encounter
--- OUTSIDE RECORDS SUMMARY | 2025-07-27 04:37 | XMS_ITS | Referral Summary ---
Author Organization [facility] ([place], [place], [place], [place]) Address [address] [place] [address] Care Team Providers Care Bone Crusher Name Role Phone Unavailable Primary Care Provider [...]
--- OUTSIDE RECORDS SUMMARY | 2025-07-27 04:37 | XMS_ITS | Encounter Summary ---
Author Organization [employer] ([place], [place], [place], [place]) Address [address] [place] [address] Care Team Providers Care Cable Placer Name Role Phone Unavailable Primary Care Provider Unavailabl e Encounter Details Date Type Department Care Team (Late st Contact Info) Description 06/28/2019 Transcribed Document [facility] [place] Medicine [address] [place] [address] ProviderHumberto MD [address] [place] [address] Social History Tobacco Use Types [...] Conversion Note - Historical ProviderMD - 06/28/2019 12:12 AM CDT Electronically signed by [facility] Conversion Backer [employer] at 01/14/2023 8:26 PM CDT documented in this encounter Plan of Treatment Not on file documented as of this encounter Visit Diagnoses Not on filedocumented in this encounter
--- OUTSIDE RECORDS SUMMARY | 2025-07-27 04:37 | XMS_ITS | Encounter Summary ---
Author Organization [employer] ([place], [place], [place], [place]) Address [address] [place] [address] Care Team Providers Care Research Geneticist Name Role Phone Unavailable Primary Care Provider Unavailabl e Encounter Details Date Type Department Care Team (Late st Contact Info) Description 06/27/2019 Transcribed Document [facility] [place] Family Medicine [address] [place] [address] ProviderHumberto MD [address] [place] [address] Social History Tobacco Use Types [...] Historical ProviderMD - 06/27/2019 2:56 PM CDT ED Assessment Entered On: 06/27/2019 19:55 EDT Performed On: 06/27/2019 19:52 EDT by Adriana Tao Rn ED Quick Look Assessment Level of Consciousness : Alert, Awake Affect/Behavior : Appropriate, Calm, Cooperative Orientation : Oriented x 4 Skin Temperature : Warm Skin Description : Normal for ethnicity Adriana Tao Rn - 06/27/2019 19:52 EDT ED General-Functional Assess Information Obtained From : Patient Communication Barrier : None Primary Language : Welsh Any Spiritual/Cultural Needs or Requests : No Currently in Unsafe Situation : No Adriana Tao Rn - 06/27/2019 19:52 EDT Social Habits Smoking Status : Never (less than 100 in lifetime; none in last 30 days) Smokeless Tobacco Status : Never Desires Tobacco Cessation Calc : 0 Adriana Tao Rn - 06/27/2019 19:52 EDT Social History (As Of: 06/27/2019 19:55:41 EDT) EENT Assessment EENT Assessment WDL : CB Adriana Tao Rn - 06/27/2019 19:52 EDT Cardiovascular ASMT, ED Cardiovascular Assessment WDL : CB Adriana Tao Rn - 06/27/2019 19:52 EDT Respiratory Breath Sounds Auscultated : Anterior, Laterally Respiratory Assessment WDL : CB Adriana Tao, Raheem - 06/27/2019 19:52 EDT Breath Sounds Assessment Grid All Lobes Breath Sounds : Clear Adriana Tao Rn - 06/27/2019 19:52 EDT Gastrointestinal ED Gastrointestinal Assessment WDL : [facility] with exceptions (Comment: Pt c/o abdominal pain x 1 week, seen at [facility] and diagnosed with a viral infection, pt states it has been getting worse, pain is 8/10 ripping in lower abdomen radiating to back, states some bloody diarrhea a couple of times this week. [Adriana Tao, Raheem - 06/27/2019 19:52 EDT] ) Adriana Tao Rn - 06/27/2019 19:52 EDT Genitourinary Assessment, ED Genitourinary Assessment WDL : Adriana Israel Rn - 06/27/2019 19:52 EDT Musculoskeletal Musculoskeletal Assessment WDL : Adriana Israel Rn - 06/27/2019 19:52 EDT Integumentary Assessment Integumentary Assessment WDL : Adriana Israel Rn - 06/27/2019 19:52 EDT Neurologic ASMT, ED Neurologic Assessment WDL : CB Adriana Tao Rn - 06/27/2019 19:52 EDT Pain Assessment Pain Assessment : Initial assessment Pain Scale Used : 0-10 Scale Location : Abdomen, left lower, Abdomen, right lower Onset : Acute Quality : Other: ripping Pain Radiation : Yes Pain Radiation Location : Back Adriana Tao Rn - 06/27/2019 19:52 EDT Pain Scale Intensity : 8 Adriana Tao Rn - 06/27/2019 19:52 EDT Image 4 - Images currently included in the form version of this document have not been included in the text rendition version of the form. documented in this encounter Plan of Treatment Not on file documented as of this encounter Visit Diagnoses Not on filedocumented in this encounter
== END 2025-07-27 23:59 | disposition home or self-care (01) ==
LOC: RAD 04:36
PROVIDERS: PCP Family Medicine; Visit Provider Family Medicine
DX: M25.562 Pain in left knee (principal)
CPT/HCPCS: 73562